=== PATIENT | female | born 1990 | race Caucasian/White ===

== ENCOUNTER 2021-08-15 | Outpatient (REF) | payer OTHER, SELFPAY ==
[2021-08-15 11:56] LABS: MANUAL DIFF FLAG NO
[2021-08-15 12:15] LABS: Basophils Percent Auto 0.3 % (0-2); Eosinophils Percent Auto 1.7 % (0-4); Hemoglobin 12.9 g/dl (12.0-16.0); Imm Gran Abs Auto 0.02 X10*3/uL (0.00-0.03); Imm Gran Pct Auto 0.3 % (0.0-0.4); Lymphocytes Percent Auto 27.1 % (20-40); Mean Corpuscular HGB Conc 32.3 g/dl (31.0-35.0); Mean Corpuscular Volume 96.2 fL (80.0-98.0); Mean Platelet Volume 11.5 fL (9.4-12.3); Monocytes Percent Auto 5.5 % (2-11); Neutrophils Absolute Auto 3.8 x10*3/uL (2.0-8.3); Neutrophils Percent Auto 65.1 % (45-73); Platelet Count 257 X10*3/uL (160-400); Red Blood Count 4.16 X10*6/uL (4.20-5.50); Red Cell Distribution Width 11.5 % (11.0-16.0); White Blood Count 5.9 X10*3/uL (4.8-10.8)
[2021-08-15 12:16] LABS: Eosinophils Absolute Auto 0.1 X10*3/uL (0.0-0.4); Lymphocytes Absolute Auto 1.6 X10*3/uL (1.2-4.9); Monocytes Absolute Auto 0.3 X10*3/uL (0.1-1.2)
[2021-08-15 12:45] LABS: Alanine Aminotransferase 73 U/L (0-31); Albumin Level 3.9 g/dL (3.5-5.0); Alkaline Phosphatase 78 U/L (39-117); Anion Gap 13 (12-20); Aspartate Amino Transferase 47 U/L (5-31); Bilirubin Total 0.5 mg/dL (0.0-1.0); Blood Urea Nitrogen 10 mg/dL (9-16); Carbon Dioxide 25 mmol/L (22-29); Chloride 107 mmol/L (96-108); Cholesterol 144 mg/dL; Estimated Glomerular Filt Rate > 60; Glucose Fasting 95 mg/dL (60-99); HDL Cholesterol 47 mg/dL; LDL Cholesterol Calculated 79 mg/dl; Potassium 4.7 mmol/L (3.3-5.1); Sodium 140 mmol/L (135-145); Total Protein 7.3 g/dL (6.5-8.0); Triglycerides 92 mg/dL
[2021-08-15 12:57] LABS: Free T4 (Free Thyroxine) 0.83 ng/dL (0.71-1.85); Thyroid Stimulating Hormone 1.95 uIU/mL (0.32-4.0)
[2021-08-16 06:37] LABS: Thyroglobulin Antibodies <1 IU/mL (< or = 1); Thyroid Peroxidase Antibodies 204 IU/mL (<9)
[2021-08-30 07:45] LABS: Vitamin D 25-OH, D2 <4
[2021-08-30 07:46] LABS: Vitamin D 25-OH, D3 48
[2021-08-30 07:47] LABS: Vitamin D 25-OH, Total 48
== END 2021-08-15 00:01 | disposition home or self-care (01) ==
LOC: HO.LAB
PROVIDERS: Visit Provider Internal Medicine
DX: E66.9 Obesity, unspecified (principal); Z68.30 Body mass index [BMI] 30.0-30.9, adult; E05.00 Thyrotoxicosis with diffuse goiter without thyrotoxic crisis or storm; E55.9 Vitamin D deficiency, unspecified; R74.01 Elevation of levels of liver transaminase levels
CPT/HCPCS: 36415; 80053; 80061; 82306; 84439; 84443; 85025; 86376; 86800

== ENCOUNTER 2021-09-20 13:05 | Outpatient (REF) | payer OTHER, SELFPAY ==
[2021-09-20 14:34] LABS: Alanine Aminotransferase 7 U/L (0-31); Albumin Level 4.1 g/dL (3.5-5.0); Alkaline Phosphatase 77 U/L (39-117); Aspartate Amino Transferase 16 U/L (5-31); Bilirubin Direct 0.2 mg/dL (0.0-0.5); Bilirubin Total 0.5 mg/dL (0.0-1.0); Total Protein 7.3 g/dL (6.5-8.0)
[2021-09-24 12:11] LABS: Vitamin D 25-OH, D2 <4 ng/mL; Vitamin D 25-OH, D3 38 ng/mL; Vitamin D 25-OH, Total 38 ng/mL (30-100)
== END 2021-09-20 13:06 | disposition home or self-care (01) ==
LOC: HO.LAB 13:05
PROVIDERS: PCP Internal Medicine; Visit Provider Internal Medicine
DX: R74.01 Elevation of levels of liver transaminase levels (principal); E55.9 Vitamin D deficiency, unspecified
CPT/HCPCS: 36415; 80076; 82306

== ENCOUNTER 2021-10-03 08:37 | Outpatient (REF) | payer OTHER, SELFPAY ==
--- NOTE | ~2021-10-03 | US_ITS ---
EXAMINATION: US COMPLETE ABDOMEN WITH LIVER ELASTOGRAPHY CLINICAL INFORMATION: Elevated liver transaminase levels COMPARISON: None. TECHNIQUE: Real-time imaging of the abdominal viscera. Noninvasive ultrasound liver fibrosis assessment is performed using Darby ElastPQ point quantification shear wave elastography (2D-SWE) with a C5-2 MHz transducer. Multiple elastography samples are obtained. FINDINGS: PANCREAS: Mild. ABDOMINAL AORTA: The proximal, middle, and distal aortic segments are normal in caliber. INFERIOR VENA CAVA: Visualized portions are normal. LIVER: Normal. The liver demonstrates normal size, contour and echogenicity. No focal lesion or intrahepatic biliary duct dilatation. The right lobe measures 14.2 cm in length. The left lobe measures 12.1 cm in length. Portal flow is towards the liver (hepatopetal). Shear wave liver elastography median stiffness is 1.27 m/s (reference: normal median stiffness is 1.3 m/s or less). IQR/median stiffness to assess sampling precision is 0.06 (reference: good quality data set is IQR/median stiffness of 0.15 or less). GALLBLADDER: Normal. The gallbladder is physiologically distended without evidence of stones, sludge, polyps, wall thickening or pericholecystic fluid. COMMON BILE DUCT: Normal in caliber measuring 0.4 cm in diameter. RIGHT KIDNEY: Normal. No hydronephrosis. No renal calculi or focal parenchymal lesions. The kidney measures 10.4 cm in maximum dimension. LEFT KIDNEY: Normal. No hydronephrosis. No renal calculi or focal parenchymal lesions. The kidney measures 10.8 cm in maximum dimension. SPLEEN: Normal. The spleen measures 10.4 cm in maximum dimension. FREE FLUID: None. US/US abdomen comp w elastography IMPRESSION: 1. Normal abdominal ultrasound. 2. Liver elastography: Measurements are consistent with a high probability of normal liver stiffness. REFERENCE: Society of Radiologists in Ultrasound Liver Stiffness Thresholds (2020): LIVER STIFFNESS THRESHOLDS: *Liver Stiffness equal or less than 1.3 m/s: High probability of being normal. *Liver Stiffness less than 1.7 m/s: In the absence of other known clinical signs, rules out compensated advanced chronic liver disease. *Liver Stiffness 1.7-2.1 m/s: Suggestive of compensated advanced chronic liver disease but need further test for confirmation. *Liver Stiffness over 2.1 m/s: Rules in compensated advanced chronic liver disease. *Liver Stiffness over 2.4 m/s: Suggestive of clinically significant portal hypertension. QUALITY OF DATA SET: *IQR/Median value equal or less than 0.15 implies a quality data set. *IQR/Median value over 0.15 implies a poor quality data set. SIGNIFICANT CHANGE FROM PRIOR EXAM: Significant change if liver stiffness measurement is 10% or greater from prior exam. OTHER CONSIDERATIONS: The stage of liver fibrosis may be overestimated in the setting of acute hepatitis, liver inflammation, elevated liver function tests, hepatic vascular congestion, obstructive cholestasis, non-fasting state, and infiltrative diseases such as amyloidosis and lymphoma. In some patients with NAFLD, the liver stiffness thresholds for compensated advanced chronic liver disease may be lower. In causes other than viral hepatitis and NAFLD, liver stiffness thresholds are not well established.
== END 2021-10-03 08:38 | disposition home or self-care (01) ==
LOC: HO.US 08:37
PROVIDERS: PCP Internal Medicine; Visit Provider Internal Medicine
DX: R74.01 Elevation of levels of liver transaminase levels (principal)
CPT/HCPCS: 76705; 76981

== ENCOUNTER 2022-04-09 09:44 | Outpatient (REF) | payer OTHER, SELFPAY ==
--- NOTE | ~2022-04-09 | XR_ITS ---
EXAMINATION: KNEE X-RAY CLINICAL INFORMATION: Pain COMPARISON: None TECHNIQUE: AP standing view of both knees and lateral and sunrise view of the left knee FINDINGS: Left: Bone alignment is normal. No fracture or dislocation is seen. Joint spaces are normal. There is no joint effusion. Standing AP view of the right knee is unremarkable. XR/XR knee LT 2V IMPRESSION: Unremarkable exam.
--- NOTE | ~2022-04-09 | XR_ITS ---
EXAMINATION: KNEE X-RAY CLINICAL INFORMATION: Pain COMPARISON: None TECHNIQUE: AP standing view of both knees and lateral and sunrise view of the left knee FINDINGS: Left: Bone alignment is normal. No fracture or dislocation is seen. Joint spaces are normal. There is no joint effusion. Standing AP view of the right knee is unremarkable. XR/XR knee standing BI IMPRESSION: Unremarkable exam.
== END 2022-04-09 09:45 | disposition home or self-care (01) ==
LOC: HO.HOSX 09:44
PROVIDERS: Visit Provider Physician Assistant
DX: M25.562 Pain in left knee (principal); M25.561 Pain in right knee; M94.269 Chondromalacia, unspecified knee
CPT/HCPCS: 73560; 73565; 99202

== ENCOUNTER 2022-06-23 17:00 | Outpatient (RCR) | payer OTHER, SELFPAY ==
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
--- NOTE | 2022-06-23 17:44 | MHC.PT.DC ---
[facility] [place] [facility] [place] Office [place] Office [address] Elizabeth Meza [address] [phone] F: [phone] F: [phone] F: [phone] F: [phone] Physical Therapy Discharge Report Diagnosis: chondromalacia L knee Date of Surgery: n/a Date of Evaluation: 05/01/22 Date of Discharge: 06/23/22 Treatments to Date: 11 Cancellations to Date: 1 No Shows to Date: Discharge Status: Improved Function Independent with HEP Discharge Summary: 06/23/2022: Pt has made progress since beginning skilled PT. Her pain is better at this point although does still vary without explanation. She is still having some discomfort with prolonged standing and fast movements. Her strength has improved but still demonstrating some impairments with hip extension strength. Discussed recommendation to continue with HEP at home to maintain all gains made thus farn and further progress in terms of strength and she demonstrates good understanding. At this point max benefits of PT have been provided and skilled PT is no longer indicated at this time. Pt in agreement of d/c today. Advised following up with referring provider if pain continues or affects her functional mobility and pt with good understanding. Electronically signed by: Marian Iglesias, PT, DPT, ATC Please sign and return to therapist. Thank you for your referral.
== END 2022-06-23 17:44 | disposition home or self-care (01) ==
LOC: HO.PTCHIC 17:00
PROVIDERS: PCP Internal Medicine; Visit Provider Physician Assistant
DX: M25.562 Pain in left knee (principal); M94.262 Chondromalacia, left knee
CPT/HCPCS: 97110; 97161

== ENCOUNTER → 2022-10-23 15:24 | Outpatient (BNVA) | payer OTHER, SELFPAY | PROVIDERS: PCP Nurse Practitioner Family; Visit Provider Surgery Vascular Surgery | DX: O22.02 Varicose veins of lower extremity in pregnancy, second trimester (principal); I83.12 Varicose veins of left lower extremity with inflammation; Z3A.00 Weeks of gestation of pregnancy not specified | CPT/HCPCS: 99202 ==

== ENCOUNTER 2023-09-15 15:53 | Outpatient (AMB) | payer OTHER, SELFPAY ==
[2023-09-15 15:55] VITALS: BP 112/70; BMI 29.7
--- NOTE | 2023-09-15 15:55 | A.OFFPC_ITS ---
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 Accompanied by: Significant Other Allergies No Known Allergies [No Known Allergies*] Allergy (Verified 09/15/23 16:07) Medication List - Last Reconciled 09/15/23 by Rhonda Castorena MD aspirin mg PO vit no.[id number] 27 mg iron- 800 mcg ( Vitamin) 1 tab PO DAILY Tobacco use date assessed: 09/15/23 Dental Screening Dental Screen Date: 09/15/23 Did you have a dental visit in the last 12 months?: No Did you have a dental problem in the last 6 months where you did not have access to dental care?: No Was dental information given to patient?: Patient has dentist HPI HPI Comments History of Present Illness Details This is a 32-year-old female that comes accompanied for physical exam. Pap smear was done less than a year ago and was normal as per patient. No chest pain or shortness of breath. Complains of easy bruising and I explained to her that this can happen while using aspirin. [facility] Medical History Transaminitis COVID-19 Graves disease ROBIN (generalized anxiety disorder) Class 1 obesity with body mass index (BMI) of 30.0 to 30.9 in adult Surgical History No pertinent past surgical history Family History Father No problems noted. 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 1. Little interest or pleasure in doing things: not at all 2. Feeling down, depressed, or hopeless: not at all 3. Trouble falling or staying asleep, or sleeping too much: not at all 4. Feeling tired or having little energy: not at all 5. Poor appetite or overeating: not at all 6. Feeling bad about yourself - or that you are a failure or have let yourself or your family down: not at all 7. Trouble concentrating on things, such as reading the newspaper or watching television: not at all 8. Moving or speaking so slowly that other people could have noticed. Or the opposite - being so fidgety or restless that you have been moving around a lot more than usual: not at all 9. Thoughts that you would be better off or of hurting yourself in some way: not at all Total score: 0 Depression Screening Interpretation: Negative Depression Screening Done: Yes 69128 - PHQ-9 Billing: Yes Source: Developed by Drs. Easton Finnegan, Rosa Maria Velasquez, Valentin Lau and colleagues, with an educational justyna from [employer]. Thrive Questionnaire Date Thrive assessed: 09/15/23 I am a: Patient What is your living situation today?: I have a steady place to live Within the past 12 months, did the food you bought not last and you didn't have the money to get more?: Never true Within the past 12 months, did you worry whether your food would run out before you got money to buy more?: Never true Do you have trouble paying for medicines?: No Do you have trouble getting transportation to medical appointments?: No Do you have trouble paying your heating and electricity bill?: No Do you have trouble taking care of your child, family member or friend?: No Do you have trouble with day-to-day activities such as bathing, preparing meals, shopping, managing finances, etc.?: No Are you currently unemployed and looking for a job?: No Are you interested in more education?: No Please select the resources that you would like help with: None Currently or been in a relationship where the following occur: no concerns reported THRIVE Score: 0 AUDIT C Alcohol Use Questionnaire (AUDIT-C) 1. How often do you have a drink containing alcohol?: Never Total Score: 0 ROBIN-7 AMB Questionnaire ROBIN-7 Date ROBIN - 7 assessed: 09/15/23 Feeling nervous, anxious, or on edge: 1 = Several days Not being able to stop or control worryin = Not at all Worrying too much about different things: 0 = Not at all Trouble relaxin = Not at all Being so restless that it is hard to sit still: 0 = Not at all Becoming easily annoyed or irritable: 0 = Not at all Feeling afraid as if something awful might happen: 0 = Not at all Total ROBIN-7 score (0-4 normal; 5-9 mild; 10-14 moderate; 15-21 severe): 1 Source: Developed by Drs. Easton Finnegan, Rosa Maria Velasquez, Valentin Lau and colleagues, with an educational justyna from [employer]. ROBIN-7 Assessment Billing ROBIN-7 Assessment Tool: ROBIN-7 Assessment 11024 Review of Systems Const All systems reviewed & are unremarkable except as noted in HPI and below Eyes Reports no additional complaints, Denies change in vision and Denies other visual disturbances Card Denies chest pain at rest, Denies chest pain with activity, Denies edema, Denies irregular heart rhythm, Denies claudication, Denies dyspnea, Denies dyspnea on exertion, Denies orthopnea, Denies paroxysmal nocturnal dyspnea and Denies slow heart rate Resp Denies cough, Denies dyspnea and Denies dyspnea on exertion GI Denies abdominal pain, Denies change in bowel habits, Denies excessive flatus, Denies nausea and Denies vomiting Denies urinary incontinence, Denies urinary hesitancy and Denies urinary urgency Musc Denies abnormal gait, Denies atrophy, Denies deformity and Denies limited range of motion Skin/Breast Denies bleeding lesions, Denies changing lesions and Denies rash Neuro Denies abnormal gait, Denies behavioral changes, Denies confusion and Denies lack of coordination Psych Denies behavioral changes and Denies confusion Melvin/Lymph Reports easy bruising Physical exam (Primary Care) Vital Signs: Last Vital Signs BP 112/70 09/15/23 15:55 BMI result Body Mass Index 29.7 Tobacco/Smoking Status: Tobacco use Status Tobacco use date assessed 09/15/23 09/15/23 16:03 Patient Tobacco Use Status Never used Tobacco 09/15/23 16:03 e-Cigarette/Vaping Use Never Used 09/15/23 16:03 PHQ-9: PHQ-9 Score PHQ-9: Total score 0 09/15/23 16:03 Depression Screening Interpretation: Negative Thrive Assessment: Date of Thrive Assessment Date Thrive assessed 09/15/23 09/15/23 16:03 Currently or been in a relationship where the following occur: no concerns reported Const General: No confusion Orientation/consciousness: patient oriented x3 and No confusion HENMT Head: Yes normal to inspection, Yes normocephalic and Yes atraumatic Ears: external ears normal Eyes General: appearance normal, both eyes and all related structures Eyelids: Yes eyelids normal Conjunctivae: conjunctivae normal Neck Neck: Yes normal visual inspection and Yes supple Resp Effort & Inspection: normal respiratory effort Auscultation: clear to auscultation bilaterally Cardio Jugular venous distension: no JVD Rate: regular rate Rhythm: regular rhythm Heart sounds: S1 normal heart sound present and S2 normal heart sound present GI Inspection: Yes normal to inspection Palpation (GI): Soft to palpation and nontender Auscultation: normal bowel sounds Skin General skin exam: no rashes or lesions noted Neuro General: patient oriented x3, no focal motor deficits and No confusion Extrem General: Yes full ROM Psych Appearance: grossly normal Assessment and Plan Assessment & Plan (1) Physical exam: Code(s): Z00.00 - Encounter for general adult medical examination without abnormal findings Plan: Repeat in a year. Orders: Orders Complete Blood Count Auto Diff Today R23.3 - Spontaneous ecchymoses Thyroid Stimulating Hormone Today E05.00 - Thyrotoxicosis with diffuse goiter without thyrotoxic crisis or storm Coding Level of Care Code Est Pt Prev Care 18-39y(56307) Diagnoses Physical exam Z00.00 Additional Codes ROBIN-7 Assessment Billing - ROBIN-7 Assessment Tool: ROBIN-7 Assessment 95953 ([id number]) Time Spent (min) 30
== END 2023-09-15 16:16 | disposition home or self-care (01) ==
PROVIDERS: Visit Provider Internal Medicine
DX: Z00.00 Encounter for general adult medical examination without abnormal findings (principal)
CPT/HCPCS: 99395

== ENCOUNTER 2024-02-18 11:37 | Outpatient (REF) | payer OTHER, SELFPAY ==
[2024-02-18 11:46] LABS: MANUAL DIFF FLAG NO
[2024-02-18 12:53] LABS: Basophils Absolute Auto 0.1 X10*3/uL (0.0-0.2); Basophils Percent Auto 1.1 % (0-2); Eosinophils Absolute Auto 0.2 X10*3/uL (0.0-0.4); Eosinophils Percent Auto 4.1 % (0-4); Hematocrit 38.1 % (37.0-47.0); Hemoglobin 12.7 g/dl (12.0-16.0); Imm Gran Abs Auto 0.01 X10*3/uL (0.00-0.03); Imm Gran Pct Auto 0.2 % (0.0-0.4); Lymphocytes Absolute Auto 1.7 X10*3/uL (1.2-4.9); Lymphocytes Percent Auto 31.3 % (20-40); Mean Corpuscular HGB Conc 33.3 g/dl (31.0-35.0); Mean Corpuscular Hemoglobin 31.6 pg (27.0-33.0); Mean Corpuscular Volume 94.8 fL (80.0-98.0); Mean Platelet Volume 11.8 fL (9.4-12.3); Monocytes Absolute Auto 0.3 X10*3/uL (0.1-1.2); Monocytes Percent Auto 6.3 % (2-11); Neutrophils Absolute Auto 3.1 x10*3/uL (2.0-8.3); Platelet Count 239 X10*3/uL (160-400); Red Blood Count 4.02 X10*6/uL (4.20-5.50); Red Cell Distribution Width 11.6 % (11.0-16.0); White Blood Count 5.4 X10*3/uL (4.8-10.8)
[2024-02-18 13:17] LABS: Thyroid Stimulating Hormone 1.33 uIU/mL (0.32-4.0)
== END 2024-02-18 11:38 | disposition home or self-care (01) ==
LOC: HO.LAB 11:37
PROVIDERS: PCP Internal Medicine; Visit Provider Internal Medicine
DX: R23.3 Spontaneous ecchymoses (principal); E05.00 Thyrotoxicosis with diffuse goiter without thyrotoxic crisis or storm
CPT/HCPCS: 36415; 84443; 85025

== ENCOUNTER 2024-09-19 16:14 | Outpatient (AMB) | payer OTHER, SELFPAY ==
--- NOTE | 2024-09-19 16:18 | A.OFFPC_ITS ---
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 Required: No Accompanied by: Self / Same As Patient Allergies No Known Allergies [No Known Allergies*] Allergy (Verified 09/19/24 16:30) Medication List - Last Reconciled 09/19/24 by Rhonda Castorena MD No Known Home Meds Tobacco use date assessed: 09/19/24 Dental Screening Dental Screen Date: 09/19/24 Did you have a dental visit in the last 12 months?: No Did you have a dental problem in the last 6 months where you did not have access to dental care?: No Was dental information given to patient?: Patient has dentist HPI HPI Comments History of Present Illness Details This is a 33-year-old female that comes for her physical exam. Pap smear up-to-date. She has mild goiter and would like thyroid to be checked. No acute complaints. 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 1. Little interest or pleasure in doing things: not at all 2. Feeling down, depressed, or hopeless: not at all 3. Trouble falling or staying asleep, or sleeping too much: not at all 4. Feeling tired or having little energy: not at all 5. Poor appetite or overeating: not at all 6. Feeling bad about yourself - or that you are a failure or have let yourself or your family down: not at all 7. Trouble concentrating on things, such as reading the newspaper or watching television: not at all 8. Moving or speaking so slowly that other people could have noticed. Or the opposite - being so fidgety or restless that you have been moving around a lot more than usual: not at all 9. Thoughts that you would be better off or of hurting yourself in some way: not at all Total score: 0 Depression Screening Interpretation: Negative Depression Screening Done: Yes 61278 - PHQ-9 Billing: Yes Source: Developed by Drs. Easton Finnegan, Rosa Maria Velasquez, Valentin Lau and colleagues, with an educational justyna from [employer]. Thrive Questionnaire Date Thrive assessed: 09/19/24 I am a: Patient What is your living situation today?: I have a steady place to live Within the past 12 months, did the food you bought not last and you didn't have the money to get more?: Sometimes True Within the past 12 months, did you worry whether your food would run out before you got money to buy more?: Sometimes True Do you have trouble paying for medicines?: No Do you have trouble getting transportation to medical appointments?: No Do you have trouble paying your heating and electricity bill?: I choose not to answer this question Do you have trouble taking care of your child, family member or friend?: No Do you have trouble with day-to-day activities such as bathing, preparing meals, shopping, managing finances, etc.?: No Are you currently unemployed and looking for a job?: I choose not to answer this question Are you interested in more education?: I choose not to answer this question Please select the resources that you would like help with: Food Currently or been in a relationship where the following occur: No concerns reported THRIVE Score: 2 AUDIT C Alcohol Use Questionnaire (AUDIT-C) 1. How often do you have a drink containing alcohol?: Never Total Score: 0 Score Reviewed/Action Taken: No ROBIN-7 AMB Questionnaire ROBIN-7 Date ROBIN - 7 assessed: 09/19/24 Feeling nervous, anxious, or on edge: 0 = Not at all Not being able to stop or control worryin = Not at all Worrying too much about different things: 2 = More than half the days Trouble relaxin = Not at all Being so restless that it is hard to sit still: 0 = Not at all Becoming easily annoyed or irritable: 0 = Not at all Feeling afraid as if something awful might happen: 0 = Not at all Total ROBIN-7 score (0-4 normal; 5-9 mild; 10-14 moderate; 15-21 severe): 2 Source: Developed by Drs. Easton Finnegan, Rosa Maria Velasquez, Valentin Lau and colleagues, with an educational justyna from [employer]. ROBIN-7 Assessment Billing ROBIN-7 Assessment Tool: ROBNI-7 Assessment 77708 Review of Systems Const All systems reviewed & are unremarkable except as noted in HPI and below Card Denies chest pain at rest, Denies chest pain with activity, Denies edema, Denies irregular heart rhythm, Denies claudication, Denies dyspnea, Denies dyspnea on exertion, Denies orthopnea, Denies paroxysmal nocturnal dyspnea and Denies slow heart rate Resp Denies cough, Denies dyspnea and Denies dyspnea on exertion Physical exam (Primary Care) Vital Signs: Last Vital Signs BP 112/70 09/19/24 16:20 BMI result Body Mass Index 30.0 BMI Assessment/Plan discussion: High BMI High, discussed plan: lifestyle, weight reduction, dietary and physical activity Tobacco/Smoking Status: Tobacco use Status Tobacco use date assessed 09/19/24 09/19/24 16:24 Patient Tobacco Use Status Never used Tobacco 09/19/24 16:24 e-Cigarette/Vaping Use Never Used 09/19/24 16:24 PHQ-9: PHQ-9 Score PHQ-9: Total score 0 09/19/24 16:31 Depression Screening Interpretation: Negative Thrive Assessment: Date of Thrive Assessment Date Thrive assessed 09/19/24 09/19/24 16:24 Currently or been in a relationship where the following occur: No concerns reported HENMT Head: Yes normal to inspection, Yes normocephalic and Yes atraumatic Ears: external ears normal Eyes General: appearance normal, both eyes and all related structures Eyelids: Yes eyelids normal Conjunctivae: conjunctivae normal Neck Neck: Yes normal visual inspection and Yes supple Thyroid: diffusely enlarged Resp Effort & Inspection: normal respiratory effort Auscultation: clear to auscultation bilaterally Cardio Jugular venous distension: no JVD Rate: regular rate Rhythm: regular rhythm Heart sounds: S1 normal heart sound present and S2 normal heart sound present GI Inspection: Yes normal to inspection Palpation (GI): Soft to palpation and nontender Auscultation: normal bowel sounds Skin General skin exam: no rashes or lesions noted Neuro General: no focal motor deficits Extrem General: Yes full ROM Psych Appearance: grossly normal Coding Level of Care Code Est Pt Level 3 (28316) Est Pt Prev Care 18-39y(15073) Diagnoses Physical exam Z00.00 Goiter E04.9 Additional Codes ROBIN-7 Assessment Billing - ROBIN-7 Assessment Tool: ROBIN-7 Assessment 48576 ([id number]) PHQ-9 - 07947 - PHQ-9 Billing: Yes ([id number]) Time Spent (min) 35 Assessment & Plan Assessment & Plan (1) Physical exam: Code(s): Z00.00 - Encounter for general adult medical examination without abnormal findings Category: Medical Plan: Repeat in a year. (2) Goiter: Code(s): E04.9 - Nontoxic goiter, unspecified Category: Medical Plan: Ultrasound of the thyroid ordered. Orders: Orders US thyroid Today E04.9 - Nontoxic goiter, unspecified Thyroid Stimulating Hormone Today E04.9 - Nontoxic goiter, unspecified Free T4 (Free Thyroxine) Today E04.9 - Nontoxic goiter, unspecified Comprehensive [place]. Panel Fast Today Z00.00 - Encounter for general adult medical examination without abnormal findings Lipid Panel Today Z00.00 - Encounter for general adult medical examination without abnormal findings
[2024-09-19 16:20] VITALS: BP 112/70
== END 2024-09-19 16:41 | disposition home or self-care (01) ==
PROVIDERS: PCP Internal Medicine; Visit Provider Internal Medicine
DX: Z00.00 Encounter for general adult medical examination without abnormal findings (principal); E04.9 Nontoxic goiter, unspecified

== ENCOUNTER → 2024-09-19 16:14 | Outpatient (BNVA) | payer OTHER, SELFPAY | PROVIDERS: PCP Internal Medicine; Visit Provider Internal Medicine | DX: Z00.00 Encounter for general adult medical examination without abnormal findings (principal); E04.9 Nontoxic goiter, unspecified | CPT/HCPCS: 96127; 99212; 99395 ==

== ENCOUNTER 2024-10-11 10:52 | Outpatient (REF) | payer OTHER, SELFPAY ==
[2024-10-11 12:43] LABS: Anion Gap 8 (12-20)
[2024-10-11 12:48] LABS: Alanine Aminotransferase 11 U/L (0-31); Albumin Level 3.9 g/dL (3.5-5.0); Aspartate Amino Transferase 20 U/L (5-31); Bilirubin Total 0.3 mg/dL (0.0-1.0); Blood Urea Nitrogen 11 mg/dL (9-16); Calcium 9.3 mg/dL (8.4-10.2); Carbon Dioxide 25 mmol/L (22-29); Chloride 111 mmol/L (96-108); Cholesterol 124 mg/dL (<200); Estimated Glomerular Filt Rate > 60; Glucose Fasting 91 mg/dL (60-99); HDL Cholesterol 55 mg/dL (>40); LDL Cholesterol Calculated 64 mg/dL (<100); Potassium 4.2 mmol/L (3.3-5.1); Sodium 140 mmol/L (135-145); Total Protein 7.4 g/dL (6.5-8.0); Triglycerides 27 mg/dL (<150)
[2024-10-11 13:11] LABS: Alkaline Phosphatase 107 U/L (39-117); Free T4 (Free Thyroxine) 0.89 ng/dL (0.71-1.85); Thyroid Stimulating Hormone 0.97 uIU/mL (0.32-4.0)
[2024-10-12 09:03] LABS: Rubella IgG Antibody 1.26 Index
== END 2024-10-11 10:53 | disposition home or self-care (01) ==
LOC: HO.LAB 10:52
PROVIDERS: PCP Internal Medicine; Visit Provider Internal Medicine
DX: Z00.00 Encounter for general adult medical examination without abnormal findings (principal); E04.9 Nontoxic goiter, unspecified
CPT/HCPCS: 36415; 80053; 80061; 84439; 84443; 86735; 86762; 86765

== ENCOUNTER 2024-10-12 10:26 | Outpatient (REF) | payer OTHER, SELFPAY ==
--- NOTE | ~2024-10-12 | US_ITS ---
EXAMINATION: US THYROID HISTORY: E04.9 - Nontoxic goiter, unspecified TECHNIQUE: Real-time grayscale ultrasound imaging was performed and images were reviewed. COMPARISON: There are no prior studies for comparison. FINDINGS: SIZE: The right thyroid lobe measures 4.4 x 1.8 x 1.5 cm. The left thyroid lobe measures 5.0 x 1.1 x 1.7 cm. The isthmus measures 4 mm. FLOW: Flow to the gland is increased. ECHOGENICITY: The echotexture of the gland is heterogeneous. NODULES: Subcentimeter nodules are identified in both thyroid lobes as described below: Nodule #: 1 Location: Lower pole of the right thyroid lobe measuring 4 x 3 x 3 mm. Shape: Wider than tall (0 points) Margins: Smooth (0 points) Echotexture: Isoechoic (1 point) Composition: Solid (2 points) Calcifications: None (0 points) Total points: 3 TIRADS: TR3: Mildly suspicious. Nodule #: 2 Location: Upper pole of the left thyroid lobe measuring 3 x 2 x 2 mm Shape: Wider than tall (0 points) Margins: Smooth (0 points) Echotexture: Hypoechoic (2 points) Composition: Solid (2 points) Calcifications: None (0 points) Total points: 4 TIRADS: TR4: Moderately suspicious. US/US thyroid IMPRESSION: Subcentimeter bilateral thyroid nodules as described. ACR TI-RADS Guidelines TR1: Benign, No follow-up or biopsy required TR2: Not Suspicious, No biopsy indicated TR3: Mildly Suspicious, FNA if >= 2.5 cm, Follow if >= 1.5 cm TR4: Moderately Suspicious, FNA if >= 1.5 cm, Follow if >= 1.0 cm TR5: Highly Suspicious, FNA if >= 1.0 cm, Follow if >= 0.5 cm Electronically signed by: Easton Wing MD 10/12/2024 01:46 PM EDT
== END 2024-10-12 10:27 | disposition home or self-care (01) ==
LOC: HO.US 10:26
PROVIDERS: PCP Internal Medicine; Visit Provider Internal Medicine
DX: E04.9 Nontoxic goiter, unspecified (principal)
CPT/HCPCS: 76536

== ENCOUNTER → 2024-10-12 10:28 | Outpatient (BNV) | payer OTHER, SELFPAY | PROVIDERS: PCP Internal Medicine; Visit Provider Radiology Diagnostic Radiology | DX: E04.9 Nontoxic goiter, unspecified (principal) | CPT/HCPCS: 76536 ==

== ENCOUNTER 2024-11-25 07:49 | Outpatient (AMB) | payer OTHER, SELFPAY ==
[2024-11-25 08:01] VITALS: BP 116/72; PULSE 75; O2SAT 97; BMI 31.4
--- NOTE | 2024-11-25 08:01 | A.OFFVIS_ITS ---
Vital Signs 11/25/24 08:01 Height 5 ft 6 in Weight 194 lb 7.163 oz BMI 31.4 BP 116/72 Blood Pressure Location Lt brachial Position Sitting Pulse 75 Pulse Source Pulse Oximeter Pulse Oximetry (%) 97 Oxygen Delivery Method Room Air Intake Visit Reasons: Nontoxic single thyroid nodule Intake Note: New patient present today for Nontoxic single thyroid nodule. Family Readiness Support Assistant Required: No Accompanied by: Self / Same As Patient Allergies No Known Allergies [No Known Allergies*] Allergy (Verified 11/25/24 08:05) Medication List - Last Reconciled 11/25/24 by Alvina Yanes MD No Known Home Meds HPI Comments Details: 34-year-old female here today for initial evaluation of nontoxic multinodular goiter. Here with mother in law. Burning sensation in neck intermittently , for a year. feels pain is unrelated to swallowing or eating habits. Self resolves within a 24 hrs. Some swelling in the neck. One a week. Ultrasound of the thyroid done 10/03/2024 showed a right lower pole 0.4 cm solid isoechoic TR 3 nodule and a left upper pole 0.3 cm solid hypoechoic nodule which is TR 4 category. Patient currently, diarrhea or constipation, hair loss, palpitation, anxiety, weight changes, mood changes, low energy, changes in appearance of eyes or vision changes, tremors, increased diaphoresis or dry skin. ? some heat intolerance weight stable over the past 5 years. palpitations: for many years. never mentioned to PCP. Patient denies any difficulty swallowing, pain on swallowing or voice changes or difficulty breathing. Patient denies any history of childhood neck radiation. Denies having ever used lithium, amiodarone or biotin supplements. Patient denies any family history of thyroid cancer . Paternal aunt: thyroid nodules? family history father: colon cancer never smoker [facility] Physical exam General: sitting comfortably in no acute distress HEENT: normocephalic/atraumatic, moist oral mucosa Neck: supple, symmetrical, no thyromegaly , no dorsocervical or supraclavicular fat pads Cardiac: normal heart sounds Pulm: normal breath sounds B/L, no added breath sounds Abd: not distended, no tenderness Extremities: no edema, no signs of myxedema Neuro: AAO x3, Speech: normal, no facial droop, moving all 4 extremities Laboratory Tests 10/11/24 11:17 TSH 0.97 Free T4 0.89 EXAMINATION: US THYROID 10/03/24 HISTORY: E04.9 - Nontoxic goiter, unspecified TECHNIQUE: Real-time grayscale ultrasound imaging was performed and images were reviewed. COMPARISON: There are no prior studies for comparison. FINDINGS: SIZE: The right thyroid lobe measures 4.4 x 1.8 x 1.5 cm. The left thyroid lobe measures 5.0 x 1.1 x 1.7 cm. The isthmus measures 4 mm. FLOW: Flow to the gland is increased. ECHOGENICITY: The echotexture of the gland is heterogeneous. NODULES: Subcentimeter nodules are identified in both thyroid lobes as described below: Nodule #: 1 Location: Lower pole of the right thyroid lobe measuring 4 x 3 x 3 mm. Shape: Wider than tall (0 points) Margins: Smooth (0 points) Echotexture: Isoechoic (1 point) Composition: Solid (2 points) Calcifications: None (0 points) Total points: 3 TIRADS: TR3: Mildly suspicious. Nodule #: 2 Location: Upper pole of the left thyroid lobe measuring 3 x 2 x 2 mm Shape: Wider than tall (0 points) Margins: Smooth (0 points) Echotexture: Hypoechoic (2 points) Composition: Solid (2 points) Calcifications: None (0 points) Total points: 4 TIRADS: TR4: Moderately suspicious. US/US thyroid IMPRESSION: Subcentimeter bilateral thyroid nodules as described. 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 Ultrasound of the thyroid done 10/03/2024 showed a right lower pole 0.4 cm solid isoechoic TR 3 nodule and a left upper pole 0.3 cm solid hypoechoic nodule which is TR 4 category. I reviewed the images myself, these are very low risk and small nodules that do not need follow up. I explained this to the patient and reassured her that her thyroid function is normal and the nodules are not related to the symptoms she is describing and she needs further evaluation with her PCP to figure out other differentials such as acid reflux or vocal cord irritation or postnasal drip. At this time she does not need follow up with me. Plan See above Coding Level of Care Code New Pt Level 3 (10902) Diagnoses Thyroid nodule E04.1
== END 2024-11-25 08:38 | disposition home or self-care (01) ==
LOC: HO.ENCR 07:50
PROVIDERS: PCP Internal Medicine; Visit Provider Student in an Organized Health Care Education/Training Program
DX: E04.1 Nontoxic single thyroid nodule (principal)
CPT/HCPCS: 99203

== ENCOUNTER → 2024-11-25 07:49 | Outpatient (BNVA) | payer OTHER, SELFPAY | PROVIDERS: PCP Internal Medicine; Visit Provider Student in an Organized Health Care Education/Training Program | DX: E04.1 Nontoxic single thyroid nodule (principal) | CPT/HCPCS: 99202 ==